=== PATIENT | female | born 1965 | race Caucasian/White ===

== ENCOUNTER 2017-01-20 18:21 | Inpatient (IN) | payer MEDICAID, OTHER ==
[~2017-01-20] VITALS: Ht 162.6 cm; Wt 65.8 kg
[2017-01-20] MEDS ORDERED: ALBUTEROL SULF 2.5 MG/0.5ML(0.5%) NEB SOLN NEB ONE (19:15)
[2017-01-20] MEDS ORDERED: IPRATROPIUM BROM 0.5 MG/2.5ML INH SOL NEB ONE (19:15)
[2017-01-20] MEDS ORDERED: methylPREDNISolone SOD SUCC 125 MG/2 ML VL IV ONE (19:45)
[2017-01-20] MEDS ORDERED: ALBUTEROL SULF 2.5 MG/0.5ML(0.5%) NEB SOLN HHN ONE (19:45)
[2017-01-20] MEDS ORDERED: IPRATROPIUM BROM 0.5 MG/2.5ML INH SOL HHN ONE (19:45)
[2017-01-20 20:07] LABS: Basophils # (auto) 0.1 uL; Basophils % (auto) 0.8 % (0.0-2.0); Eosinophils % (auto) 10.4 % (0.0-7.0); Hematocrit 43.2 % (36.0-46.0); Hemoglobin 14.1 g/dL (12.2-16.2); Lymphocytes # (auto) 1.4 uL; Lymphocytes % (auto) 15.2 % (10.0-50.0); Mean Corpuscular Hemoglobin 28.9 pg (28.0-32.0); Mean Corpuscular Hgb Conc. 32.7 g/dL (32.0-36.0); Mean Corpuscular Volume 88.5 fL (80.0-100.0); Mean Platelet Volume 8.4 fL (6.9-10.8); Monocytes # (auto) 0.7 uL; Monocytes % (auto) 7.9 % (0.0-12.0); Neutrophils # (auto) 6.2 uL; Neutrophils % (auto) 65.7 % (37.0-80.0); Nucleated Red Blood Cells % 0.1 %; Platelet Count (auto) 314 10^3/uL (140-450); Red Cell Distribution Width 14.4 % (11.8-14.3); White Blood Cell 9.5 10^3/uL (4.4-10.8)
[2017-01-20] MEDS ORDERED: ONDANSETRON HCL 4 MG/2 ML VIAL IV ONE (20:15)
[2017-01-20] MEDS ORDERED: MORPHINE SULF INJ 2 MG/ML SYRINGE 1ML IV ONE (20:15)
[2017-01-20 20:34] LABS: Albumin 3.6 g/dL (3.4-5.0); Alkaline Phosphatase 59 U/L (45-117); Anion Gap 8 (5-15); Aspartate Aminotransferase 20 U/L (15-37); BUN/Creatinine Ratio 17.2; Bilirubin, Total 0.3 mg/dL (0.2-1.0); Blood Urea Nitrogen 11 mg/dL (7-18); Calcium 8.5 mg/dL (8.5-10.1); Carbon Dioxide 25 mmol/L (21-32); Chloride 103 mmol/L (98-107); GFR African American 126 mL/min; GFR Non-African American 104 mL/min; Glucose 97 mg/dL (74-106); Magnesium 2.4 mg/dL (1.6-2.6); Potassium 4.1 mmol/L (3.5-5.1); Sodium 136 mmol/L (136-145)
[2017-01-21] VITALS (7 sets, daily range): BP systolic 101–140; BP diastolic 62–76
[2017-01-21] MEDS ORDERED: ACETAMINOPHEN 500 MG TAB PO PRN (01:00)
[2017-01-21] MEDS ORDERED: methylPREDNISolone SOD SUCC 40 MG/ML VL IV SCH (01:00)
[2017-01-21] MEDS ORDERED: MORPHINE SULF INJ 2 MG/ML SYRINGE 1ML IV PRN (01:00)
[2017-01-21] MEDS ORDERED: ALBUTEROL SULF 2.5 MG/0.5ML(0.5%) NEB SOLN NEB PRN (01:00)
[2017-01-21] MEDS ORDERED: ONDANSETRON HCL 4 MG/2 ML VIAL IV PRN (01:00)
[2017-01-21] MEDS ORDERED: IPRATROPIUM BROM 0.5 MG/2.5ML INH SOL NEB SCH (06:00)
[2017-01-21] MEDS ORDERED: ALBUTEROL SULF 2.5 MG/0.5ML(0.5%) NEB SOLN NEB SCH (06:00)
[2017-01-21 08:19] LABS: Hemoglobin 13.4 g/dL (12.2-16.2); Mean Corpuscular Hgb Conc. 32.5 g/dL (32.0-36.0); Mean Corpuscular Volume 89.2 fL (80.0-100.0); Mean Platelet Volume 8.6 fL (6.9-10.8); Platelet Count (auto) 311 10^3/uL (140-450); Red Cell Distribution Width 14.9 % (11.8-14.3); White Blood Cell 9.2 10^3/uL (4.4-10.8)
[2017-01-21 08:22] LABS: BUN/Creatinine Ratio 14.9; Calcium 9.1 mg/dL (8.5-10.1); Metamyelocytes % 0; Myelocytes % 0; Potassium 4.9 mmol/L (3.5-5.1); Promyelocytes % 0; Reactive Lymphocytes 0
[2017-01-21 09:15] LABS: Platelet Estimate Adequate
[2017-01-21 09:16] LABS: Giant Platelets Few; Tear Drop Cells FEW
[2017-01-21] MEDS: methylPREDNISolone SOD SUCC 40 MG/ML VL IV SCH ×3 (12:04→23:04)
[2017-01-21] MEDS: NICOTINE 21MG/24 HR TOPICAL PATCH TD SCH (12:04)
[2017-01-21] MEDS: ALBUTEROL SULF 2.5 MG/0.5ML(0.5%) NEB SOLN NEB SCH ×2 (14:24→19:07)
[2017-01-21] MEDS: IPRATROPIUM BROM 0.5 MG/2.5ML INH SOL NEB SCH ×2 (14:24→19:07)
[2017-01-21] MEDS: HYDROcodone-ACET 5/325MG TAB PO PRN (15:43)
[2017-01-22 05:00] VITALS: BP 102/61
[2017-01-22] MEDS: IBUPROFEN 600 MG TAB PO PRN ×2 (05:06→18:37)
[2017-01-22] MEDS: methylPREDNISolone SOD SUCC 40 MG/ML VL IV SCH ×4 (05:07→23:47)
[2017-01-22] MEDS: ALBUTEROL SULF 2.5 MG/0.5ML(0.5%) NEB SOLN NEB SCH ×4 (06:07→18:41)
[2017-01-22] MEDS: IPRATROPIUM BROM 0.5 MG/2.5ML INH SOL NEB SCH ×4 (06:07→18:41)
[2017-01-22 06:15] LABS: Hematocrit 43.7 % (36.0-46.0); Hemoglobin 13.8 g/dL (12.2-16.2); Mean Corpuscular Hemoglobin 27.9 pg (28.0-32.0); Mean Corpuscular Hgb Conc. 31.6 g/dL (32.0-36.0); Mean Corpuscular Volume 88.3 fL (80.0-100.0); Mean Platelet Volume 8.5 fL (6.9-10.8); Platelet Count (auto) 353 10^3/uL (140-450); Red Cell Distribution Width 14.6 % (11.8-14.3); White Blood Cell 27.7 10^3/uL (4.4-10.8)
[2017-01-22 06:49] LABS: Metamyelocytes % 0; Myelocytes % 0; Promyelocytes % 0; Reactive Lymphocytes 0
[2017-01-22 06:58] LABS: BUN/Creatinine Ratio 18.8; Calcium 8.8 mg/dL (8.5-10.1); Potassium 4.3 mmol/L (3.5-5.1)
[2017-01-22 07:45] LABS: Platelet Estimate Adequate; RBC Morphology Normal
[2017-01-22 09:00] VITALS: BP 113/78
[2017-01-22] MEDS: NICOTINE 21MG/24 HR TOPICAL PATCH TD SCH (10:16)
[2017-01-22 13:00] VITALS: BP 121/75
[2017-01-22 17:00] VITALS: BP 113/70
[2017-01-22 20:00] VITALS: BP 123/67
[2017-01-22 22:40] VITALS: BP 123/67
[2017-01-22] MEDS: HYDROcodone-ACET 5/325MG TAB PO PRN (23:51)
[2017-01-23 05:28] VITALS: BP 122/82
[2017-01-23] MEDS: ALBUTEROL SULF 2.5 MG/0.5ML(0.5%) NEB SOLN NEB SCH ×3 (05:42→13:49)
[2017-01-23] MEDS: IPRATROPIUM BROM 0.5 MG/2.5ML INH SOL NEB SCH ×3 (05:42→13:47)
[2017-01-23 06:32] LABS: Basophils % (auto) 0.1 % (0.0-2.0); Lymphocytes # (auto) 0.7 uL; Lymphocytes % (auto) 3.4 % (10.0-50.0); Monocytes % (auto) 1.5 % (0.0-12.0); Neutrophils # (auto) 19.8 uL; White Blood Cell 20.9 10^3/uL (4.4-10.8)
[2017-01-23] MEDS: methylPREDNISolone SOD SUCC 40 MG/ML VL IV SCH ×2 (06:32→12:11)
[2017-01-23 06:33] LABS: Basophils # (auto) 0 uL; Eosinophils # (auto) 0 uL; Hematocrit 40.9 % (36.0-46.0); Hemoglobin 13.2 g/dL (12.2-16.2); Mean Corpuscular Hemoglobin 28.7 pg (28.0-32.0); Mean Corpuscular Hgb Conc. 32.3 g/dL (32.0-36.0); Mean Corpuscular Volume 88.9 fL (80.0-100.0); Mean Platelet Volume 8.5 fL (6.9-10.8); Monocytes # (auto) 0.3 uL; Platelet Count (auto) 356 10^3/uL (140-450); Red Cell Distribution Width 15.1 % (11.8-14.3)
[2017-01-23] MEDS: HYDROcodone-ACET 5/325MG TAB PO PRN (06:40)
[2017-01-23 06:54] LABS: BUN/Creatinine Ratio 23.3; Calcium 8.5 mg/dL (8.5-10.1); Potassium 4.3 mmol/L (3.5-5.1)
[2017-01-23 09:13] VITALS: BP 104/59
[2017-01-23] MEDS: NICOTINE 21MG/24 HR TOPICAL PATCH TD SCH (12:10)
[2017-01-23 14:43] VITALS: BP 101/56
[2017-01-23 16:13] LABS: Urine Bilirubin Negative (Negative); Urine Blood Negative /uL (Negative); Urine Ca Oxalate Crystal FEW (None Seen); Urine Color Yellow (Yellow); Urine Glucose 3+ mg/dL (Normal); Urine Ketone Negative (Negative); Urine Mucus FEW (None Seen); Urine Nitrite Negative (Negative); Urine RBC 2 /hpf (0 - 4); Urine Squamous Epithelial Cell FEW /hpf (<5); Urine Urobilinogen Normal (Negative)
[2017-01-23 17:23] VITALS: BP 128/70
== END 2017-01-23 18:40 | disposition home or self-care (01) | DRG 133 ==
LOC: ER 18:40 → TELE 18:41 → CENTRAL 01-21 02:27
PROVIDERS: ADMIT Nurse Practitioner Family; ATTEND Nurse Practitioner Acute Care
DX: J96.01 Acute respiratory failure with hypoxia (principal); J45.902 Unspecified asthma with status asthmaticus; F17.210 Nicotine dependence, cigarettes, uncomplicated; I25.2 Old myocardial infarction
CPT/HCPCS: 36415; 71010; 74176; 80048; 80053; 81001; 83735; 84484; 85007; 85025; 85027; 93005; 94640; 94761; 96374; 96375; 96376; J2405

== ENCOUNTER 2021-02-06 17:41 | Inpatient (IN) | payer MEDICAID ==
[~2021-02-06] VITALS: Ht 162.6 cm; Wt 85.1 kg
[2021-02-06] MEDS ORDERED: ALBUTEROL SULF 2.5 MG/0.5ML(0.5%) NEB SOLN NEB ONE (18:30)
[2021-02-06] MEDS ORDERED: IPRATROPIUM BROM 0.5 MG/2.5ML INH SOL NEB ONE (18:30)
[2021-02-06] MEDS ORDERED: SODIUM CHLORIDE 0.9% 1,000 ML IV ONE (19:15)
[2021-02-06 19:52] LABS: Basophils # (auto) 0.1 10 ^3/uL (0-0.2); Eosinophils # (auto) 0.7 10 ^3/uL (0-0.8); Eosinophils % (auto) 7.4 % (0.0-7.0); Hematocrit 43.2 % (36.0-46.0); Hemoglobin 14.5 g/dL (12.2-16.2); Lymphocytes # (auto) 1.5 10 ^3/uL (0.4-5.4); Lymphocytes % (auto) 14.6 % (10.0-50.0); Mean Corpuscular Hemoglobin 30.1 pg (28.0-32.0); Mean Corpuscular Hgb Conc. 33.5 g/dL (32.0-36.0); Monocytes # (auto) 0.8 10 ^3/uL (0-1.3); Monocytes % (auto) 8.1 % (0.0-12.0); Neutrophils # (auto) 6.8 10 ^3/uL (1.6-8.6); Neutrophils % (auto) 68.9 % (37.0-80.0); Red Blood Cells 4.81 10^6/uL (4.0-5.20); Red Cell Distribution Width 13.9 % (11.8-14.3); White Blood Cell 9.9 10^3/uL (4.4-10.8)
[2021-02-06 20:10] LABS: INR 0.99 (0.9-1.15)
[2021-02-06 20:16] LABS: Albumin 3.8 g/dL (3.4-5.0); Anion Gap 4 (5-15); Blood Urea Nitrogen 12 mg/dL (7-18); Calcium 8.8 mg/dL (8.5-10.1); Carbon Dioxide 27 mmol/L (21-32); Chloride 106 mmol/L (98-107); Glucose 105 mg/dL (74-106); Magnesium 2.1 mg/dL (1.6-2.6); Sodium 137 mmol/L (136-145)
[2021-02-06 20:25] LABS: Alanine Aminotransferase 35 U/L (13-56); Alkaline Phosphatase 66 U/L (45-117); Aspartate Aminotransferase 22 U/L (15-37); BUN/Creatinine Ratio 15.4; Bilirubin, Total 0.4 mg/dL (0.2-1.0); CRP High Sensitivity 1.13 mg/dL (< 0.3); GFR African American 99 mL/min; GFR Non-African American 81 mL/min; Total Protein 7.9 g/dL (6.4-8.2)
[2021-02-06] MEDS ORDERED: hydrALAZINE HCL 20 MG/ML VL IV ONE (21:45)
[2021-02-06] MEDS ORDERED: methylPREDNISolone SOD SUCC 125 MG/2 ML VL IV ONE (21:45)
[2021-02-06] MEDS ORDERED: TEMAZEPAM 15 MG CAP PO PRN (22:15)
[2021-02-06] MEDS ORDERED: ONDANSETRON HCL 4 MG/2 ML VIAL IV PRN (22:15)
[2021-02-06] MEDS ORDERED: ACETAMINOPHEN 325 MG TAB PO PRN (22:15)
[2021-02-06] MEDS ORDERED: ALBUTEROL SULF 2.5 MG/0.5ML(0.5%) NEB SOLN NEB PRN (22:15)
[2021-02-06] MEDS ORDERED: NITROGLYCERIN 0.4 MG SL TAB SL PRN (22:15)
[2021-02-06] MEDS ORDERED: AZITHROMYCIN 500MG/ 250ML 250 ML IV ONE (22:15)
[2021-02-06] MEDS ORDERED: IPRATROPIUM BROM 0.5 MG/2.5ML INH SOL NEB PRN (22:15)
[2021-02-06] MEDS ORDERED: MORPHINE SULFATE INJECTION 2 MG/ML SYRG IV PRN (22:15)
[2021-02-06] MEDS ORDERED: cefTRIAXone 1GM/50ML D5W 50 ML IV ONE (22:15)
[2021-02-06 22:36] VITALS: BP 143/80
[2021-02-06] MEDS: ENOXAPARIN SOD 100 MG/1 ML SYRINGE SC SCH (23:30)
[2021-02-07 08:17] LABS: Basophils # (auto) 0.1 10 ^3/uL (0-0.2); Basophils % (auto) 0.8 % (0.0-2.0); Eosinophils # (auto) 0 10 ^3/uL (0-0.8); Eosinophils % (auto) 0.1 % (0.0-7.0); Hematocrit 41.9 % (36.0-46.0); Hemoglobin 14.2 g/dL (12.2-16.2); Lymphocytes # (auto) 0.6 10 ^3/uL (0.4-5.4); Lymphocytes % (auto) 10.4 % (10.0-50.0); Mean Corpuscular Hemoglobin 30.7 pg (28.0-32.0); Mean Corpuscular Volume 90.3 fL (80.0-100.0); Monocytes # (auto) 0.1 10 ^3/uL (0-1.3); Monocytes % (auto) 0.9 % (0.0-12.0); Neutrophils # (auto) 5.5 10 ^3/uL (1.6-8.6); Neutrophils % (auto) 87.8 % (37.0-80.0); Red Blood Cells 4.64 10^6/uL (4.0-5.20); Red Cell Distribution Width 14.4 % (11.8-14.3); White Blood Cell 6.2 10^3/uL (4.4-10.8)
[2021-02-07 08:38] LABS: Albumin 3.3 g/dL (3.4-5.0); Potassium 4.1 mmol/L (3.5-5.1)
[2021-02-07 08:40] LABS: BUN/Creatinine Ratio 14.9
[2021-02-07 08:43] LABS: Bilirubin, Total 0.3 mg/dL (0.2-1.0); Total Protein 7.5 g/dL (6.4-8.2)
[2021-02-07] MEDS: cefTRIAXone 1GM/50ML D5W 50 ML IV SCH (09:27)
[2021-02-07] MEDS: ZINC SULFATE 220mg CAP or TAB PO SCH (10:00)
[2021-02-07] MEDS: DexAMETHasone SOD PHOS 10MG/1ML VIAL INJ IV SCH (10:00)
[2021-02-07] MEDS: ASCORBIC ACID 500 MG TAB PO SCH ×2 (10:00→21:47)
[2021-02-07] MEDS: ENOXAPARIN SOD 100 MG/1 ML SYRINGE SC SCH ×2 (10:00→21:47)
[2021-02-07] MEDS: PANTOPRAZOLE 40 MG TAB PO SCH (10:00)
[2021-02-07] MEDS: AZITHROMYCIN 500MG/ 250ML 250 ML IV SCH (10:00)
[2021-02-07] MEDS: IPRATROPIUM BROM 0.5 MG/2.5ML INH SOL NEB SCH ×3 (14:51→22:16)
[2021-02-07] MEDS: ALBUTEROL SULF 2.5 MG/0.5ML(0.5%) NEB SOLN NEB SCH ×3 (14:51→22:16)
[2021-02-07 20:45] VITALS: BP 122/78
[2021-02-07] MEDS ORDERED: ASPI-543 PO (23:50)
[2021-02-07] MEDS ORDERED: ALBUAER3 IN (23:50)
[2021-02-07] MEDS ORDERED: BECL40AE11 IN (23:50)
[2021-02-07] MEDS ORDERED: LOSA25TA38 PO (23:50)
[2021-02-07] MEDS ORDERED: CETI1TAB36 PO (23:50)
[2021-02-07] MEDS ORDERED: METO25TA5 PO (23:50)
[2021-02-08 05:00] VITALS: BP 112/80
[2021-02-08] MEDS: ALBUTEROL SULF 2.5 MG/0.5ML(0.5%) NEB SOLN NEB SCH ×3 (06:20→19:40)
[2021-02-08] MEDS: IPRATROPIUM BROM 0.5 MG/2.5ML INH SOL NEB SCH ×3 (06:21→19:40)
[2021-02-08 06:36] LABS: Basophils # (auto) 0 10 ^3/uL (0-0.2); Basophils % (auto) 0.2 % (0.0-2.0); Eosinophils # (auto) 0 10 ^3/uL (0-0.8); Eosinophils % (auto) 0.1 % (0.0-7.0); Hematocrit 41.4 % (36.0-46.0); Hemoglobin 13.9 g/dL (12.2-16.2); Lymphocytes # (auto) 1.3 10 ^3/uL (0.4-5.4); Lymphocytes % (auto) 9.4 % (10.0-50.0); Mean Corpuscular Hemoglobin 30.7 pg (28.0-32.0); Mean Corpuscular Hgb Conc. 33.5 g/dL (32.0-36.0); Mean Corpuscular Volume 91.7 fL (80.0-100.0); Monocytes # (auto) 0.9 10 ^3/uL (0-1.3); Monocytes % (auto) 6.7 % (0.0-12.0); Neutrophils # (auto) 11.8 10 ^3/uL (1.6-8.6); Neutrophils % (auto) 83.6 % (37.0-80.0); Nucleated Red Blood Cells % 0.1 %; Red Blood Cells 4.51 10^6/uL (4.0-5.20); Red Cell Distribution Width 13.8 % (11.8-14.3); White Blood Cell 14.1 10^3/uL (4.4-10.8)
[2021-02-08 06:50] LABS: BUN/Creatinine Ratio 18.8; Calcium 8.8 mg/dL (8.5-10.1); Potassium 4.2 mmol/L (3.5-5.1)
[2021-02-08 08:12] VITALS: BP 119/68
[2021-02-08] MEDS: cefTRIAXone 1GM/50ML D5W 50 ML IV SCH (10:27)
[2021-02-08] MEDS: ASCORBIC ACID 500 MG TAB PO SCH ×2 (10:28→21:03)
[2021-02-08] MEDS: ZINC SULFATE 220mg CAP or TAB PO SCH (10:28)
[2021-02-08] MEDS: DexAMETHasone SOD PHOS 10MG/1ML VIAL INJ IV SCH (10:28)
[2021-02-08] MEDS: PANTOPRAZOLE 40 MG TAB PO SCH (10:28)
[2021-02-08] MEDS: ENOXAPARIN SOD 100 MG/1 ML SYRINGE SC SCH (10:28)
[2021-02-08] MEDS: AZITHROMYCIN 500MG/ 250ML 250 ML IV SCH (10:29)
[2021-02-08 13:17] VITALS: BP 141/64
[2021-02-08] MEDS: LORATADINE 10 MG TAB PO SCH (16:54)
[2021-02-08 17:24] VITALS: BP 103/74
[2021-02-08] MEDS: APIXABAN 5 MG TAB PO SCH (21:03)
[2021-02-08 22:00] VITALS: BP 108/65
[2021-02-09] MEDS: ALBUTEROL SULF 2.5 MG/0.5ML(0.5%) NEB SOLN NEB SCH ×4 (00:02→19:13)
[2021-02-09] MEDS: IPRATROPIUM BROM 0.5 MG/2.5ML INH SOL NEB SCH ×4 (00:02→19:13)
[2021-02-09 05:00] VITALS: BP 114/70
[2021-02-09 06:48] LABS: BUN/Creatinine Ratio 19.4; Calcium 8.6 mg/dL (8.5-10.1); Potassium 4.6 mmol/L (3.5-5.1)
[2021-02-09 06:49] LABS: Basophils # (auto) 0 10 ^3/uL (0-0.2); Basophils % (auto) 0.4 % (0.0-2.0); Eosinophils # (auto) 0 10 ^3/uL (0-0.8); Eosinophils % (auto) 0.1 % (0.0-7.0); Hematocrit 39.1 % (36.0-46.0); Lymphocytes # (auto) 1.4 10 ^3/uL (0.4-5.4); Lymphocytes % (auto) 18.3 % (10.0-50.0); Mean Corpuscular Hemoglobin 30.2 pg (28.0-32.0); Mean Corpuscular Hgb Conc. 33.4 g/dL (32.0-36.0); Mean Corpuscular Volume 90.4 fL (80.0-100.0); Monocytes # (auto) 0.5 10 ^3/uL (0-1.3); Neutrophils # (auto) 5.6 10 ^3/uL (1.6-8.6); Neutrophils % (auto) 74.2 % (37.0-80.0); Nucleated Red Blood Cells % 0.1 %; Red Blood Cells 4.33 10^6/uL (4.0-5.20); Red Cell Distribution Width 13.9 % (11.8-14.3); White Blood Cell 7.6 10^3/uL (4.4-10.8)
[2021-02-09 08:43] VITALS: BP 113/73
[2021-02-09] MEDS: cefTRIAXone 1GM/50ML D5W 50 ML IV SCH (09:00)
[2021-02-09] MEDS: AZITHROMYCIN 500MG/ 250ML 250 ML IV SCH (10:00)
[2021-02-09] MEDS ORDERED: methylPREDNISolone SOD SUCC 40 MG/ML VL IV ONE (10:30)
[2021-02-09] MEDS: APIXABAN 5 MG TAB PO SCH ×2 (10:33→21:09)
[2021-02-09] MEDS: ASCORBIC ACID 500 MG TAB PO SCH ×2 (10:33→21:09)
[2021-02-09] MEDS: LORATADINE 10 MG TAB PO SCH (10:33)
[2021-02-09] MEDS ORDERED: methylPREDNISolone SOD SUCC 40 MG/ML VL ONE (11:02)
[2021-02-09] MEDS: ZINC SULFATE 220mg CAP or TAB PO SCH (11:11)
[2021-02-09] MEDS: PANTOPRAZOLE 40 MG TAB PO SCH (11:12)
[2021-02-09 14:15] VITALS: BP 95/56
[2021-02-09 17:15] VITALS: BP 112/68
[2021-02-09] MEDS: CALCIUM CARB 500 MG CHEW TAB PO PRN (21:42)
[2021-02-09 21:58] VITALS: BP 112/68
[2021-02-09 22:00] VITALS: BP 102/69
[2021-02-10] MEDS: IPRATROPIUM BROM 0.5 MG/2.5ML INH SOL NEB SCH ×4 (00:12→19:03)
[2021-02-10] MEDS: ALBUTEROL SULF 2.5 MG/0.5ML(0.5%) NEB SOLN NEB SCH ×4 (00:12→19:03)
[2021-02-10 05:00] VITALS: BP 104/76
[2021-02-10 07:35] LABS: Basophils # (auto) 0 10 ^3/uL (0-0.2); Basophils % (auto) 0.3 % (0.0-2.0); Eosinophils # (auto) 0.1 10 ^3/uL (0-0.8); Eosinophils % (auto) 0.9 % (0.0-7.0); Hemoglobin 13.8 g/dL (12.2-16.2); Lymphocytes # (auto) 1.9 10 ^3/uL (0.4-5.4); Lymphocytes % (auto) 27.6 % (10.0-50.0); Mean Corpuscular Hemoglobin 30.6 pg (28.0-32.0); Mean Corpuscular Hgb Conc. 33.6 g/dL (32.0-36.0); Mean Corpuscular Volume 90.9 fL (80.0-100.0); Monocytes # (auto) 0.6 10 ^3/uL (0-1.3); Monocytes % (auto) 8.7 % (0.0-12.0); Neutrophils # (auto) 4.3 10 ^3/uL (1.6-8.6); Neutrophils % (auto) 62.5 % (37.0-80.0); Red Blood Cells 4.51 10^6/uL (4.0-5.20); Red Cell Distribution Width 13.9 % (11.8-14.3); White Blood Cell 6.9 10^3/uL (4.4-10.8)
[2021-02-10 07:51] LABS: Calcium 8.5 mg/dL (8.5-10.1); Potassium 3.7 mmol/L (3.5-5.1)
[2021-02-10 09:00] VITALS: BP 118/71
[2021-02-10] MEDS: ZINC SULFATE 220mg CAP or TAB PO SCH (09:35)
[2021-02-10] MEDS: cefTRIAXone 1GM/50ML D5W 50 ML IV SCH (09:35)
[2021-02-10] MEDS: LORATADINE 10 MG TAB PO SCH (09:36)
[2021-02-10] MEDS: PANTOPRAZOLE 40 MG TAB PO SCH (09:36)
[2021-02-10] MEDS: ASCORBIC ACID 500 MG TAB PO SCH ×2 (09:36→20:33)
[2021-02-10] MEDS: APIXABAN 5 MG TAB PO SCH ×2 (09:36→20:33)
[2021-02-10] MEDS ORDERED: methylPREDNISolone SOD SUCC 40 MG/ML VL IV SCH (10:00)
[2021-02-10] MEDS ORDERED: SALINE 0.65 % NASAL SPRAY 45ML BOTTLE EACHNOSTRI ONE (10:30)
[2021-02-10] MEDS: CALCIUM CARB 500 MG CHEW TAB PO PRN ×2 (11:01→17:59)
[2021-02-10] MEDS: SALINE 0.65 % NASAL SPRAY 45ML BOTTLE EACHNOSTRI SCH ×3 (12:04→20:33)
[2021-02-10 12:14] LABS: Urine Bacteria NONE SEEN /hpf (None Seen); Urine Blood Negative /uL (Negative); Urine WBC <1 /hpf (0 - 5)
[2021-02-10 16:56] VITALS: BP 104/68
[2021-02-10 22:00] VITALS: BP 120/72
[2021-02-11] MEDS: ALBUTEROL SULF 2.5 MG/0.5ML(0.5%) NEB SOLN NEB SCH ×3 (00:29→12:00)
[2021-02-11] MEDS: IPRATROPIUM BROM 0.5 MG/2.5ML INH SOL NEB SCH ×3 (00:29→12:00)
[2021-02-11 05:00] VITALS: BP 114/84
[2021-02-11] MEDS: SALINE 0.65 % NASAL SPRAY 45ML BOTTLE EACHNOSTRI SCH ×2 (05:14→12:00)
[2021-02-11] MEDS: CALCIUM CARB 500 MG CHEW TAB PO PRN ×2 (05:21→10:01)
[2021-02-11 08:15] VITALS: BP 120/77
[2021-02-11 09:11] VITALS: BP 120/77
[2021-02-11] MEDS: cefTRIAXone 1GM/50ML D5W 50 ML IV SCH (09:30)
[2021-02-11] MEDS ORDERED: PRED20TA2 PO (09:50)
[2021-02-11] MEDS ORDERED: LEVO750T8 PO (09:50)
[2021-02-11] MEDS ORDERED: APIX5TAB PO (09:50)
[2021-02-11] MEDS ORDERED: predniSONE 20 MG TAB PO SCH (10:00)
[2021-02-11] MEDS: PANTOPRAZOLE 40 MG TAB PO SCH (10:00)
[2021-02-11] MEDS: LORATADINE 10 MG TAB PO SCH (10:00)
[2021-02-11] MEDS ORDERED: AZITHROMYCIN 250 MG TAB PO SCH (10:00)
[2021-02-11] MEDS: ASCORBIC ACID 500 MG TAB PO SCH (10:00)
[2021-02-11] MEDS: ZINC SULFATE 220mg CAP or TAB PO SCH (10:00)
[2021-02-11] MEDS: APIXABAN 5 MG TAB PO SCH (10:00)
[2021-02-11 11:10] VITALS: BP 120/77
[2021-02-15] MEDS ORDERED: APIXABAN 5 MG TAB PO SCH (22:00)
== END 2021-02-11 11:45 | disposition home or self-care (01) | DRG 139 ==
LOC: ER 17:41 → TELE 22:09 → TELE-CENTR 02-07 20:30
PROVIDERS: ADMIT Nurse Practitioner; ATTEND Internal Medicine Pulmonary Disease
DX: J18.9 Pneumonia, unspecified organism (principal); I26.99 Other pulmonary embolism without acute cor pulmonale; J96.01 Acute respiratory failure with hypoxia; I27.21 Secondary pulmonary arterial hypertension; J45.902 Unspecified asthma with status asthmaticus; I77.810 Thoracic aortic ectasia; I10 Essential (primary) hypertension; F17.210 Nicotine dependence, cigarettes, uncomplicated; Z20.822 Contact with and (suspected) exposure to COVID-19; E66.9 Obesity, unspecified; I25.10 Atherosclerotic heart disease of native coronary artery without angina pectoris; Z68.30 Body mass index [BMI] 30.0-30.9, adult
CPT/HCPCS: 36415; 71045; 71275; 80048; 80053; 81001; 82728; 83735; 84484; 85025; 85379; 85610; 86141; 87426; 87804; 93306; 94640; 96365; 96366; 96368; 96372; 96375; 97163; G0378; J0696; J1100

== ENCOUNTER 2021-02-23 08:23 | Emergency (ER) | payer MEDICAID ==
[~2021-02-23] VITALS: Ht 162.6 cm; Wt 83.9 kg
[~2021-02-23 08:23] MED LIST: ALBUAER3 IN; APIX5TAB PO; ASPI-543 PO; BECL40AE11 IN; CETI1TAB36 PO; LEVO750T8 PO; LOSA25TA38 PO; METO25TA5 PO; PRED20TA2 PO
[2021-02-23 10:11] VITALS: BP 155/83
== END 2021-02-23 10:19 | disposition home or self-care (01) ==
LOC: ER 08:23
DX: M79.661 Pain in right lower leg (principal); J45.909 Unspecified asthma, uncomplicated; I10 Essential (primary) hypertension
CPT/HCPCS: 93971

== ENCOUNTER 2021-06-26 18:11 | Emergency (ER) | payer MEDICAID ==
[~2021-06-26] VITALS: Ht 162.6 cm; Wt 86.2 kg
[2021-06-26 18:15] VITALS: BP 143/93
== END 2021-06-26 20:05 | disposition home or self-care (01) ==
LOC: ER 18:12
DX: K04.7 Periapical abscess without sinus (principal); I10 Essential (primary) hypertension; J45.909 Unspecified asthma, uncomplicated; F17.210 Nicotine dependence, cigarettes, uncomplicated; Z79.82 Long term (current) use of aspirin; Z79.2 Long term (current) use of antibiotics; Z79.899 Other long term (current) drug therapy

== ENCOUNTER 2021-06-27 14:48 | Emergency (ER) | payer MEDICAID ==
[~2021-06-27] VITALS: Ht 162.6 cm; Wt 86.2 kg
[2021-06-27 14:55] VITALS: BP 135/87
== END 2021-06-27 15:09 | disposition left against medical advice (07) ==
LOC: ER 14:48
DX: K08.89 Other specified disorders of teeth and supporting structures (principal); Z53.21 Procedure and treatment not carried out due to patient leaving prior to being seen by health care provider

== ENCOUNTER 2021-09-17 09:18 | Inpatient (IN) | payer MEDICAID ==
[~2021-09-17] VITALS: Ht 162.6 cm; Wt 89.0 kg
[2021-09-17] MEDS ORDERED: methylPREDNISolone SOD SUCC 125 MG/2 ML VL IV ONE (09:30)
[2021-09-17] MEDS ORDERED: ALBUTEROL SULF 2.5 MG/0.5ML(0.5%) NEB SOLN NEB ONE ×3 (09:30→15:45)
[2021-09-17] MEDS ORDERED: IPRATROPIUM BROM 0.5 MG/2.5ML INH SOL NEB ONE ×2 (09:30→15:45)
[2021-09-17 13:00] LABS: Basophils # (auto) 0.1 10 ^3/uL (0-0.2); Basophils % (auto) 1.2 % (0.0-2.0); Eosinophils % (auto) 13.3 % (0.0-7.0); Hematocrit 44.1 % (36.0-46.0); Hemoglobin 14.7 g/dL (12.2-16.2); Lymphocytes # (auto) 1.4 10 ^3/uL (0.4-5.4); Lymphocytes % (auto) 18.6 % (10.0-50.0); Mean Corpuscular Hemoglobin 29.7 pg (28.0-32.0); Mean Corpuscular Hgb Conc. 33.3 g/dL (32.0-36.0); Mean Corpuscular Volume 89.1 fL (80.0-100.0); Monocytes # (auto) 0.4 10 ^3/uL (0-1.3); Monocytes % (auto) 5.2 % (0.0-12.0); Neutrophils # (auto) 4.7 10 ^3/uL (1.6-8.6); Neutrophils % (auto) 61.7 % (37.0-80.0); Nucleated Red Blood Cells % 0.1 %; Red Blood Cells 4.95 10^6/uL (4.0-5.20); Red Cell Distribution Width 13.3 % (11.8-14.3); White Blood Cell 7.6 10^3/uL (4.4-10.8)
[2021-09-17 13:18] LABS: Albumin 3.9 g/dL (3.4-5.0); Calcium 9.2 mg/dL (8.5-10.1); Magnesium 2.1 mg/dL (1.6-2.6); Potassium 4.1 mmol/L (3.5-5.1)
[2021-09-17 13:21] LABS: BUN/Creatinine Ratio 13.9; Bilirubin, Total 0.6 mg/dL (0.2-1.0)
[2021-09-17] MEDS ORDERED: NITROGLYCERIN 0.4 MG SL TAB SL PRN (14:45)
[2021-09-17] MEDS ORDERED: MORPHINE SULFATE INJ 2 MG/ml SYRG IV PRN ×2 (14:45→15:45)
[2021-09-17] MEDS ORDERED: ALBUTEROL SULF 2.5 MG/0.5ML(0.5%) NEB SOLN NEB PRN (15:45)
[2021-09-17] MEDS ORDERED: MAGNESIUM SULFATE 1GM/100ML 100 ML IV ONE (15:45)
[2021-09-17] MEDS ORDERED: LORazepam 0.5 MG TAB PO PRN (15:45)
[2021-09-17] MEDS ORDERED: DOCUSATE SOD 100 MG CAP PO PRN (15:45)
[2021-09-17] MEDS ORDERED: HYDROcodone-ACET 5/325MG TAB PO PRN (15:45)
[2021-09-17] MEDS ORDERED: ONDANSETRON HCL 4 MG/2 ML VIAL IV PRN (15:45)
[2021-09-17] MEDS ORDERED: hydrALAZINE HCL 20 MG/ML VL IV PRN (15:45)
[2021-09-17] MEDS ORDERED: IPRATROPIUM BROM 0.5 MG/2.5ML INH SOL NEB SCH (18:00)
[2021-09-17] MEDS: IPRATROPIUM BROM 0.5 MG/2.5ML INH SOL NEB SCH ×2 (18:03→23:20)
[2021-09-17] MEDS: ALBUTEROL SULF 2.5 MG/0.5ML(0.5%) NEB SOLN NEB SCH ×2 (18:04→23:20)
[2021-09-17 18:13] VITALS: BP 120/66
[2021-09-17 19:50] LABS: INR 1.1 (0.9-1.15); Partial Thromboplastin Time 32.8 sec (23.6-33.0)
[2021-09-17 19:51] LABS: Magnesium 1.9 mg/dL (1.6-2.6); Phosphorus 3.1 mg/dL (2.5-4.90)
[2021-09-17 22:00] VITALS: BP 132/76
[2021-09-17] MEDS ORDERED: BENAZEPRIL HCL 10 MG TAB PO SCH (22:00)
[2021-09-17] MEDS: APIXABAN 5 MG TAB PO SCH (22:01)
[2021-09-17] MEDS: ATORVASTATIN 20 MG TAB PO SCH (22:01)
[2021-09-17] MEDS: MONTELUKAST SODIUM 10 MG TAB PO SCH (22:05)
[2021-09-17] MEDS: methylPREDNISolone SOD SUCC 40 MG/ML VL IV SCH (22:06)
[2021-09-18 05:00] VITALS: BP 102/75
[2021-09-18] MEDS: methylPREDNISolone SOD SUCC 40 MG/ML VL IV SCH ×2 (05:47→22:09)
[2021-09-18] MEDS: ALBUTEROL SULF 2.5 MG/0.5ML(0.5%) NEB SOLN NEB SCH ×3 (06:13→18:22)
[2021-09-18] MEDS: IPRATROPIUM BROM 0.5 MG/2.5ML INH SOL NEB SCH ×3 (06:13→18:22)
[2021-09-18 06:37] LABS: Basophils # (auto) 0 10 ^3/uL (0-0.2); Basophils % (auto) 0.1 % (0.0-2.0); Eosinophils # (auto) 0 10 ^3/uL (0-0.8); Hematocrit 41.1 % (36.0-46.0); Lymphocytes # (auto) 0.8 10 ^3/uL (0.4-5.4); Lymphocytes % (auto) 4.5 % (10.0-50.0); Mean Corpuscular Hemoglobin 30.5 pg (28.0-32.0); Mean Corpuscular Volume 89.7 fL (80.0-100.0); Monocytes # (auto) 0.6 10 ^3/uL (0-1.3); Monocytes % (auto) 3.4 % (0.0-12.0); Neutrophils # (auto) 16.2 10 ^3/uL (1.6-8.6); Nucleated Red Blood Cells % 0.1 %; Red Blood Cells 4.58 10^6/uL (4.0-5.20); Red Cell Distribution Width 13.9 % (11.8-14.3); White Blood Cell 17.6 10^3/uL (4.4-10.8)
[2021-09-18 06:50] LABS: Albumin 3.7 g/dL (3.4-5.0); BUN/Creatinine Ratio 20.5; Calcium 9.4 mg/dL (8.5-10.1); Magnesium 2.2 mg/dL (1.6-2.6); Potassium 4.7 mmol/L (3.5-5.1); Uric Acid 3.7 mg/dL (2.6-6.0)
[2021-09-18 07:00] LABS: Partial Thromboplastin Time 27.1 sec (23.6-33.0)
[2021-09-18 07:04] LABS: Bilirubin, Total 0.2 mg/dL (0.2-1.0); CRP High Sensitivity 0.54 mg/dL (< 0.3); Phosphorus 1.4 mg/dL (2.5-4.90); Total Protein 7.6 g/dL (6.4-8.2)
[2021-09-18 07:16] LABS: Thyroid Stimulating Hormone 0.46 uIU/mL (0.358-3.74)
[2021-09-18 08:00] VITALS: BP 139/45
[2021-09-18] MEDS: AZITHROMYCIN 500MG/ 250ML 250 ML IV SCH (08:50)
[2021-09-18] MEDS: APIXABAN 5 MG TAB PO SCH ×2 (08:52→22:08)
[2021-09-18] MEDS: FAMOTIDINE (10MG/ML) 2ML VL IV SCH (08:56)
[2021-09-18 09:00] VITALS: BP 139/45
[2021-09-18] MEDS ORDERED: LORATADINE 10 MG TAB PO ONE (12:00)
[2021-09-18] MEDS ORDERED: ALBUTEROL SULF 2.5 MG/0.5ML(0.5%) NEB SOLN NEB PRN (12:00)
[2021-09-18] MEDS ORDERED: BUDESONIDE (INHALATION) 0.5 MG/2 ML NEB NEB ONE (12:00)
[2021-09-18 13:00] VITALS: BP 121/77
[2021-09-18 17:00] VITALS: BP 116/78
[2021-09-18] MEDS: BUDESONIDE (INHALATION) 0.5 MG/2 ML NEB NEB SCH (18:22)
[2021-09-18 18:51] LABS: Urine Bacteria NONE SEEN /hpf (None Seen); Urine Blood Negative /uL (Negative); Urine Mucus FEW (None Seen); Urine Specific Gravity 1.035 (1.001-1.035); Urine WBC 1 /hpf (0 - 5)
[2021-09-18 19:15] LABS: Amphetamine Screen, Urine NEGATIVE (NEGATIVE); Barbiturate Scree,Urine NEGATIVE (NEGATIVE); Benzodiazephine Screen, Urine NEGATIVE (NEGATIVE); Cannabinoid Screen, Urine NEGATIVE (NEGATIVE); Cocaine Screen, Urine NEGATIVE (NEGATIVE); Opiate Scree,Urine NEGATIVE (NEGATIVE); Phencyclidine Screen, Urine NEGATIVE (NEGATIVE)
[2021-09-18 22:00] VITALS: BP 117/73
[2021-09-18] MEDS: MONTELUKAST SODIUM 10 MG TAB PO SCH (22:08)
[2021-09-18] MEDS: ATORVASTATIN 20 MG TAB PO SCH (22:08)
[2021-09-19] MEDS: ALBUTEROL SULF 2.5 MG/0.5ML(0.5%) NEB SOLN NEB SCH ×4 (00:26→18:53)
[2021-09-19] MEDS: IPRATROPIUM BROM 0.5 MG/2.5ML INH SOL NEB SCH ×4 (00:26→18:53)
[2021-09-19 05:00] VITALS: BP 114/76
[2021-09-19] MEDS: BUDESONIDE (INHALATION) 0.5 MG/2 ML NEB NEB SCH ×2 (06:05→18:53)
[2021-09-19 09:00] VITALS: BP 114/72
[2021-09-19] MEDS: AZITHROMYCIN 500MG/ 250ML 250 ML IV SCH (10:05)
[2021-09-19] MEDS: FAMOTIDINE (10MG/ML) 2ML VL IV SCH (10:05)
[2021-09-19] MEDS: methylPREDNISolone SOD SUCC 40 MG/ML VL IV SCH ×2 (10:05→21:53)
[2021-09-19] MEDS: APIXABAN 5 MG TAB PO SCH ×2 (10:05→21:53)
[2021-09-19] MEDS: LOSARTAN POTASSIUM 25 MG TAB PO SCH (10:06)
[2021-09-19] MEDS: LORATADINE 10 MG TAB PO SCH (10:06)
[2021-09-19] MEDS ORDERED: diphenhdrAMINE HCL 25 MG CAP PO PRN (11:30)
[2021-09-19 13:00] VITALS: BP 114/75
[2021-09-19 17:00] VITALS: BP 122/76
[2021-09-19 21:51] VITALS: BP 139/89
[2021-09-19] MEDS: ATORVASTATIN 20 MG TAB PO SCH (21:53)
[2021-09-19] MEDS: MONTELUKAST SODIUM 10 MG TAB PO SCH (21:54)
[2021-09-19] MEDS: PROMETHAZINE-DM 5 ML ORAL SYRUP PO PRN (23:35)
[2021-09-20] MEDS: ALBUTEROL SULF 2.5 MG/0.5ML(0.5%) NEB SOLN NEB SCH ×4 (00:43→18:14)
[2021-09-20] MEDS: IPRATROPIUM BROM 0.5 MG/2.5ML INH SOL NEB SCH ×4 (00:43→18:14)
[2021-09-20 05:05] VITALS: BP 97/61
[2021-09-20 09:00] VITALS: BP 133/80
[2021-09-20] MEDS: FAMOTIDINE (10MG/ML) 2ML VL IV SCH (09:38)
[2021-09-20] MEDS: LORATADINE 10 MG TAB PO SCH (09:40)
[2021-09-20] MEDS: methylPREDNISolone SOD SUCC 40 MG/ML VL IV SCH ×2 (09:40→22:08)
[2021-09-20] MEDS: APIXABAN 5 MG TAB PO SCH ×2 (09:40→22:08)
[2021-09-20] MEDS: LOSARTAN POTASSIUM 25 MG TAB PO SCH (09:41)
[2021-09-20] MEDS: AZITHROMYCIN 500MG/ 250ML 250 ML IV SCH (09:42)
[2021-09-20] MEDS: SALINE 0.65 % NASAL SPRAY 45ML BOTTLE EACHNOSTRI SCH ×2 (12:22→22:00)
[2021-09-20 13:00] VITALS: BP 141/91
[2021-09-20] MEDS: BUDESONIDE (INHALATION) 0.5 MG/2 ML NEB NEB SCH ×2 (16:53→18:14)
[2021-09-20 17:00] VITALS: BP 127/76
[2021-09-20 22:00] VITALS: BP 120/80
[2021-09-20] MEDS: ATORVASTATIN 20 MG TAB PO SCH (22:09)
[2021-09-20] MEDS: MONTELUKAST SODIUM 10 MG TAB PO SCH (22:09)
[2021-09-20] MEDS: PROMETHAZINE-DM 5 ML ORAL SYRUP PO PRN (22:11)
[2021-09-21] MEDS: IPRATROPIUM BROM 0.5 MG/2.5ML INH SOL NEB SCH ×4 (00:18→18:34)
[2021-09-21] MEDS: ALBUTEROL SULF 2.5 MG/0.5ML(0.5%) NEB SOLN NEB SCH ×4 (00:18→18:34)
[2021-09-21 05:00] VITALS: BP 117/76
[2021-09-21] MEDS: SALINE 0.65 % NASAL SPRAY 45ML BOTTLE EACHNOSTRI SCH (05:07)
[2021-09-21] MEDS: BUDESONIDE (INHALATION) 0.5 MG/2 ML NEB NEB SCH ×2 (06:31→18:34)
[2021-09-21 08:00] VITALS: BP 131/87
[2021-09-21 09:00] VITALS: BP 129/87
[2021-09-21] MEDS ORDERED: AZITHROMYCIN 250 MG TAB PO SCH (10:00)
[2021-09-21] MEDS: methylPREDNISolone SOD SUCC 40 MG/ML VL IV SCH (10:11)
[2021-09-21] MEDS: FAMOTIDINE (10MG/ML) 2ML VL IV SCH (10:11)
[2021-09-21] MEDS: LOSARTAN POTASSIUM 25 MG TAB PO SCH (10:12)
[2021-09-21] MEDS: APIXABAN 5 MG TAB PO SCH (10:12)
[2021-09-21] MEDS: LORATADINE 10 MG TAB PO SCH (10:12)
[2021-09-21] MEDS ORDERED: METH4PAK PO (12:23)
[2021-09-21] MEDS ORDERED: AZIT250T9 PO (12:23)
[2021-09-21] MEDS ORDERED: BECL80AE11 IN (12:23)
[2021-09-21 13:00] VITALS: BP 131/87
[2021-09-21 17:00] VITALS: BP 130/71
[2021-09-21 17:42] VITALS: BP 129/87
== END 2021-09-21 19:54 | disposition home or self-care (01) | DRG 133 ==
LOC: ER 09:18 → TELE 14:45 → TELE-EAST 18:17
PROVIDERS: ADMIT Hospitalist; ATTEND Internal Medicine
DX: J96.20 Acute and chronic respiratory failure, unspecified whether with hypoxia or hypercapnia (principal); I27.9 Pulmonary heart disease, unspecified; J18.9 Pneumonia, unspecified organism; J44.0 Chronic obstructive pulmonary disease with (acute) lower respiratory infection; J45.901 Unspecified asthma with (acute) exacerbation; E66.9 Obesity, unspecified; I25.10 Atherosclerotic heart disease of native coronary artery without angina pectoris; Z20.822 Contact with and (suspected) exposure to COVID-19; J98.11 Atelectasis; Z86.79 Personal history of other diseases of the circulatory system; F17.210 Nicotine dependence, cigarettes, uncomplicated; I10 Essential (primary) hypertension; I25.2 Old myocardial infarction; Z80.0 Family history of malignant neoplasm of digestive organs; Z85.118 Personal history of other malignant neoplasm of bronchus and lung; Z85.3 Personal history of malignant neoplasm of breast; Z79.01 Long term (current) use of anticoagulants; Z86.711 Personal history of pulmonary embolism; Z68.33 Body mass index [BMI] 33.0-33.9, adult
CPT/HCPCS: 36415; 36600; 71045; 80053; 80061; 80307; 81001; 82550; 82728; 82805; 83036; 83605; 83615; 83690; 83735; 83880; 84100; 84439; 84443; 84484; 84550; 85025; 85379; 85610; 85652; 85730; 86141; 87040; 87086; 93005; 94640; 96365; 96375; 99291; G0378; J3490

== ENCOUNTER 2023-08-05 09:29 | Emergency (ER) | payer MEDICAID ==
[~2023-08-05] VITALS: Ht 165.1 cm; Wt 60.0 kg
[~2023-08-05 09:29] MED LIST changes: +AZIT-43 PO; +BECL80AE11 IN; +LOSA-533 PO; -LOSA25TA38 PO; +METH4PAK PO
[2023-08-05] MEDS: KETOROLAC TROMETH 60MG/2ML VIAL IM ONE (12:38)
[2023-08-05] MEDS ORDERED: IBUP-1454 PO (13:23)
[2023-08-05 13:50] VITALS: BP 120/67; PULSE 65; RESP 18; TEMP 97.4; O2SAT 95
== END 2023-08-05 13:54 | disposition home or self-care (01) ==
LOC: ER 09:29
DX: M25.561 Pain in right knee (principal); I10 Essential (primary) hypertension; J45.909 Unspecified asthma, uncomplicated; I25.2 Old myocardial infarction; F17.210 Nicotine dependence, cigarettes, uncomplicated; I82.403 Acute embolism and thrombosis of unspecified deep veins of lower extremity, bilateral
CPT/HCPCS: 73562; 93970; 96372; 99285; J1885